=== PATIENT | male | born 1985 | race Two or more races ===

== ENCOUNTER 2024-08-29 23:47 | Inpatient (IN) | payer MEDICAID, OTHER ==
[~2024-08-29] VITALS: Ht 172.7 cm; Wt 107.6 kg
[2024-08-30 00:14] LABS: EOSINOPHILS % (AUTO) 2.9 % (1.0-6.0); HEMATOCRIT 46.2 % (41-53); HEMOGLOBIN 16.1 g/dL (13.5-17.5); LYMPHOCYTES # (AUTO) 2.1 K/uL (1.0-4.8); LYMPHOCYTES % (AUTO) 29.6 % (22.0-44.0); MEAN CORPUSCULAR HEMOGLOBIN 30.8 pg (26.0-34.0); MEAN CORPUSCULAR HGB CONC 34.8 G/dL (31.0-37.0); MEAN CORPUSCULAR VOLUME 89 fL (80-100); MONOCYTES # (AUTO) 0.5 K/uL (0.1-1.0); MONOCYTES % (AUTO) 6.8 % (2.0-9.0); NEUTROPHILS # (AUTO) 4.3 K/uL (1.8-7.7); NEUTROPHILS % (AUTO) 59.7 % (40.0-70.0); PLATELET COUNT (AUTO) 271 K/uL (150-450); RED BLOOD CELL COUNT(AUTO) 5.21 MIL/uL (4.50-5.90); RED CELL DISTRIBUTION WIDTH 14.3 % (11.5-14.5); WHITE BLOOD COUNT (AUTO) 7.1 K/uL (4.5-11.0)
[2024-08-30 00:23] LABS: ANION GAP 13 mmol/L (8-16); CALCIUM, TOTAL 8.4 mg/dL (8.8-10.5); CARBON DIOXIDE 24 mmol/L (22-29); CHLORIDE 101 mmol/L (98-107); CREATININE 1.08 mg/dL (0.60-1.30); GLOMERULAR FILTR. RATE CALC > 60 mL/min (>60); GLUCOSE,RANDOM 96 mg/dL (70-110); POTASSIUM 4.1 mmol/L (3.5-5.1); SODIUM SERUM 138 mmol/L (136-145); UREA NITROGEN, BLOOD 10 mg/dL (7-18)
[2024-08-30 00:32] LABS: ALCOHOL, BLOOD (SERUM) 232 mg/dL (0-10)
[2024-08-30 03:19] LABS: COVID AG,FIA SOURCE NASAL SWAB
[2024-08-30 03:24] LABS: APPEARANCE,URINE HAZY (CLEAR); BILIRUBIN,URINE NEGATIVE (NEGATIVE); COLOR,URINE YELLOW (YELLOW); GLUCOSE, URINE (UA) NEGATIVE (NEGATIVE); KETONES,URINE NEGATIVE (NEGATIVE); LEUKOCYTE ESTERASE ,URINE NEGATIVE (NEGATIVE); NITRATE,URINE NEGATIVE (NEGATIVE); OCCULT BLOOD,URINE NEGATIVE (NEGATIVE); PROTEIN,URINE 30-70 mg/dL (NEGATIVE); SPECIFIC GRAVITIY, URINE 1.022 (1.003-1.030); UROBILINOGEN,URINE <=1.0 mg/dL (<=1.0)
[2024-08-30 03:24] LABS: SARS-COV2 (COVID) ANTIGEN,FIA Negative (Negative)
[2024-08-30 03:29] LABS: ALCOHOL, URINE DRUG SCREEN POSITIVE (NEGATIVE); AMPHET/METH SCREEN,URINE NEGATIVE (NEGATIVE); BARBITURATE SCREEN, URINE NEGATIVE (NEGATIVE); BENZODIAZEPINES SCREEN,URINE NEGATIVE (NEGATIVE); CANNABINOID SCREEN,URINE NEGATIVE (NEGATIVE); COCAINE SCREEN,URINE NEGATIVE (NEGATIVE); METHADONE SCREEN, URINE NEGATIVE (NEGATIVE); OPIATE SCREEN,URINE NEGATIVE (NEGATIVE); PHENCYCLIDINE SCREEN,URINE NEGATIVE (NEGATIVE)
[2024-08-30 11:30] VITALS: O2SAT 96
[2024-08-30 13:43] VITALS: BP 133/83; PULSE 106; RESP 16; TEMP 96.8; O2SAT 95
[2024-08-30 20:02] VITALS: BP 130/79; PULSE 98; RESP 17; TEMP 97.5
[2024-08-30] MEDS ORDERED: IBUPROFEN 600 MG TABLET PO PRN (22:00)
[2024-08-30] MEDS ORDERED: CloNIDine HCL 0.1 MG TABLET PO PRN (22:00)
[2024-08-30] MEDS ORDERED: BACITRACIN 28 GM OINTMENT TP PRN (22:00)
[2024-08-30] MEDS ORDERED: MAGNESIUM HYDROXIDE SUSPENSION 30 ML UDCUP PO PRN (22:00)
[2024-08-30] MEDS ORDERED: LOPERAMIDE HCL 2 MG CAPSULE PO PRN (22:00)
[2024-08-30] MEDS ORDERED: ONDANSETRON 4 MG TABLET PO PRN (22:00)
[2024-08-30] MEDS ORDERED: BENZOCAINE/MENTHOL LOZENGE PO PRN (22:00)
[2024-08-30] MEDS ORDERED: MAG HYDROX/ALUMINUM HYD/SIMETH ES 30 ML SUSPENSION UDCUP PO PRN (22:00)
[2024-08-30] MEDS ORDERED: PETROLATUM,WHITE 28 GM JELLY TP PRN (22:00)
[2024-08-30] MEDS ORDERED: OMEPRAZOLE 20 MG CAPSULE PO PRN (22:00)
[2024-08-30] MEDS ORDERED: DOCUSATE SODIUM 100 MG CAPSULE PO PRN (22:00)
[2024-08-30] MEDS ORDERED: ALBUTEROL SULFATE HFA 90 MCG/PUFF 8 GM INHALER IH PRN (22:00)
[2024-08-31 08:23] VITALS: BP 135/98; PULSE 98; RESP 18; TEMP 97.7; O2SAT 96
[2024-08-31 09:51] LABS: HEMOGLOBIN A1C 5.4 % (3.8-5.6)
[2024-08-31 10:04] LABS: ANION GAP 12 mmol/L (8-16); CALCIUM, TOTAL 8.9 mg/dL (8.8-10.5); CARBON DIOXIDE 24 mmol/L (22-29); CHLORIDE 101 mmol/L (98-107); CHOL/HDL RATIO 3.6 (4.2-7.3); CHOLESTEROL 208 mg/dL (131-200); CREATININE 0.85 mg/dL (0.60-1.30); GLOMERULAR FILTR. RATE CALC > 60 mL/min (>60); GLUCOSE,RANDOM 138 mg/dL (70-110); HDL CHOLESTEROL 57 mg/dL (40-60); LDL CHOL (CALC.) 111 mg/dL (0-130); POTASSIUM 3.4 mmol/L (3.5-5.1); SODIUM SERUM 137 mmol/L (136-145); TRIGLYCERIDES 200 mg/dL (15-150); UREA NITROGEN, BLOOD 17 mg/dL (7-18)
[2024-08-31 13:34] VITALS: BP 149/93
[2024-08-31] MEDS: LORazepam 2 MG TABLET PO PRN (13:35)
[2024-08-31] MEDS: HALOPERIDOL 5 MG TABLET PO PRN (13:35)
[2024-08-31 20:12] VITALS: BP 118/82; PULSE 99; RESP 18; TEMP 97.3; O2SAT 96
[2024-08-31] MEDS: ZOLPIDEM TARTRATE 10 MG TABLET PO PRN (21:10)
[2024-09-01 02:06] LABS: HEPATITIS C AB (EIA) Non Reactive (Non Reactive)
[2024-09-01 08:25] VITALS: BP 126/87; PULSE 84; RESP 17; TEMP 98; O2SAT 95
[2024-09-01] MEDS ORDERED: HydrOXYzine HCL 25 MG TABLET PO PRN (13:30)
[2024-09-01] MEDS ORDERED: GABAPENTIN 300 MG CAPSULE PO PRN (13:30)
[2024-09-01] MEDS: SERTRALINE HCL 100 MG TABLET PO ONE (13:47)
[2024-09-01] MEDS: GABAPENTIN 400 MG CAPSULE PO SCH (17:24)
[2024-09-01] MEDS: HydrOXYzine HCL 25 MG TABLET PO SCH (17:24)
[2024-09-02 08:19] VITALS: BP 111/77; PULSE 99; RESP 17; TEMP 98.6; O2SAT 96
[2024-09-02] MEDS: SERTRALINE HCL 100 MG TABLET PO SCH (09:22)
[2024-09-02 20:44] VITALS: BP 118/78; PULSE 94; RESP 18; TEMP 97.8; O2SAT 97
[2024-09-03] MEDS: ACETAMINOPHEN 325 MG TABLET PO PRN (06:33)
[2024-09-03 06:36] VITALS: RESP 16
[2024-09-03 07:30] VITALS: RESP 18; O2SAT 95
[2024-09-03 08:02] VITALS: BP 126/75; PULSE 95; RESP 18; TEMP 97; O2SAT 95
[2024-09-03] MEDS: INFLUENZA VIRUS VACCINE TVS (6MO+) 2024-25/PF 45 MCG/0.5 ML SYRINGE IM. ONE (14:01)
[2024-09-03 20:03] VITALS: BP 115/74; PULSE 97; RESP 17; TEMP 98.1; O2SAT 95
[2024-09-04 08:35] VITALS: BP 114/71; PULSE 62; RESP 17; TEMP 97.7; O2SAT 96
[2024-09-04 20:35] VITALS: BP 143/94; PULSE 97; RESP 18; TEMP 97; O2SAT 95
[2024-09-05 08:16] VITALS: BP 104/64; PULSE 71; RESP 18; TEMP 98.2; O2SAT 95
[2024-09-05] MEDS ORDERED: GABA-1201 PO (15:06)
[2024-09-05] MEDS ORDERED: HYDR-4527 PO (15:07)
[2024-09-05] MEDS ORDERED: SERT-162 PO (15:07)
== END 2024-09-05 15:20 | disposition home or self-care (01) | DRG 754 ==
LOC: EMS 23:51 → B2S 08-30 11:19
PROVIDERS: ADMIT Psychiatry & Neurology Psychiatry; ATTEND Psychiatry & Neurology Psychiatry
PROC: GZ56ZZZ Individual Psychotherapy, Supportive (ICD-10-PCS; principal; 2024-08-30)
DX: F32.9 Major depressive disorder, single episode, unspecified (principal); R45.851 Suicidal ideations; E66.9 Obesity, unspecified; F10.129 Alcohol abuse with intoxication, unspecified; Z20.822 Contact with and (suspected) exposure to COVID-19; F41.9 Anxiety disorder, unspecified; K21.9 Gastro-esophageal reflux disease without esophagitis; G47.00 Insomnia, unspecified; K59.00 Constipation, unspecified; Z68.36 Body mass index [BMI] 36.0-36.9, adult; Y90.7 Blood alcohol level of 200-239 mg/100 ml
CPT/HCPCS: 80048; 80061; 80307; 81003; 83036; 84132; 85025; 86803; 87340; 90686; G0480

== ENCOUNTER 2024-09-18 02:00 | Inpatient (IN) | payer MEDICAID, OTHER ==
[~2024-09-18] VITALS: Ht 172.7 cm; Wt 110.0 kg
[~2024-09-18 02:00] MED LIST: GABA-1201 PO; HYDR-4527 PO; SERT-162 PO
[2024-09-18 03:45] LABS: PH,URINE DRUG SCREEN 5.5 (5.0-8.0)
[2024-09-18 03:48] LABS: BASOPHILS % (AUTO) 0.5 % (0.0-2.0); EOSINOPHILS % (AUTO) 3.6 % (1.0-6.0); HEMOGLOBIN 14.4 g/dL (13.5-17.5); LYMPHOCYTES # (AUTO) 2.1 K/uL (1.0-4.8); MEAN CORPUSCULAR HEMOGLOBIN 29.8 pg (26.0-34.0); MEAN CORPUSCULAR HGB CONC 33.6 G/dL (31.0-37.0); MEAN CORPUSCULAR VOLUME 89 fL (80-100); MONOCYTES # (AUTO) 0.3 K/uL (0.1-1.0); MONOCYTES % (AUTO) 4.6 % (2.0-9.0); NEUTROPHILS # (AUTO) 4.2 K/uL (1.8-7.7); NEUTROPHILS % (AUTO) 60.3 % (40.0-70.0); PLATELET COUNT (AUTO) 315 K/uL (150-450); RED BLOOD CELL COUNT(AUTO) 4.85 MIL/uL (4.50-5.90); RED CELL DISTRIBUTION WIDTH 13.9 % (11.5-14.5); WHITE BLOOD COUNT (AUTO) 6.9 K/uL (4.5-11.0)
[2024-09-18 03:53] LABS: ALCOHOL, URINE DRUG SCREEN POSITIVE (NEGATIVE); AMPHET/METH SCREEN,URINE NEGATIVE (NEGATIVE); BARBITURATE SCREEN, URINE NEGATIVE (NEGATIVE); BENZODIAZEPINES SCREEN,URINE NEGATIVE (NEGATIVE); CANNABINOID SCREEN,URINE POSITIVE (NEGATIVE); COCAINE SCREEN,URINE NEGATIVE (NEGATIVE); METHADONE SCREEN, URINE NEGATIVE (NEGATIVE); OPIATE SCREEN,URINE NEGATIVE (NEGATIVE); PHENCYCLIDINE SCREEN,URINE NEGATIVE (NEGATIVE)
[2024-09-18 04:05] LABS: ANION GAP 12 mmol/L (8-16); CARBON DIOXIDE 26 mmol/L (22-29); CHLORIDE 103 mmol/L (98-107); CREATININE 0.83 mg/dL (0.60-1.30); GLOMERULAR FILTR. RATE CALC > 60 mL/min (>60); GLUCOSE,RANDOM 97 mg/dL (70-110); POTASSIUM 3.6 mmol/L (3.5-5.1); SODIUM SERUM 141 mmol/L (136-145); UREA NITROGEN, BLOOD 11 mg/dL (7-18)
[2024-09-18 04:06] LABS: ALCOHOL, BLOOD (SERUM) 207 mg/dL (0-10)
[2024-09-18 04:32] LABS: COVID AG,FIA SOURCE NASAL SWAB
[2024-09-18 04:51] LABS: SARS-COV2 (COVID) ANTIGEN,FIA Negative (Negative)
[2024-09-18] MEDS ORDERED: HALOPERIDOL 5 MG TABLET PO PRN (12:30)
[2024-09-18] MEDS ORDERED: ZOLPIDEM TARTRATE 10 MG TABLET PO PRN (12:30)
[2024-09-18 15:56] VITALS: BP 152/92; PULSE 94; RESP 18; TEMP 97.8; O2SAT 98
[2024-09-18] MEDS: LITHIUM CARBONATE 300 MG CAPSULE PO SCH (19:04)
[2024-09-18 21:24] VITALS: BP 140/90; PULSE 92; RESP 18; TEMP 97.2; O2SAT 99
[2024-09-19] MEDS ORDERED: MAG HYDROX/ALUMINUM HYD/SIMETH ES 30 ML SUSPENSION UDCUP PO PRN (09:15)
[2024-09-19] MEDS ORDERED: PETROLATUM,WHITE 28 GM JELLY TP PRN (09:15)
[2024-09-19] MEDS ORDERED: ALBUTEROL SULFATE HFA 90 MCG/PUFF 8 GM INHALER IH PRN (09:15)
[2024-09-19] MEDS ORDERED: MAGNESIUM HYDROXIDE SUSPENSION 30 ML UDCUP PO PRN (09:15)
[2024-09-19] MEDS ORDERED: DOCUSATE SODIUM 100 MG CAPSULE PO PRN (09:15)
[2024-09-19] MEDS ORDERED: ONDANSETRON 4 MG TABLET PO PRN (09:15)
[2024-09-19] MEDS ORDERED: OMEPRAZOLE 20 MG CAPSULE PO PRN (09:15)
[2024-09-19] MEDS ORDERED: CloNIDine HCL 0.1 MG TABLET PO PRN (09:15)
[2024-09-19] MEDS ORDERED: LOPERAMIDE HCL 2 MG CAPSULE PO PRN (09:15)
[2024-09-19] MEDS ORDERED: BENZOCAINE/MENTHOL LOZENGE PO PRN (09:15)
[2024-09-19] MEDS ORDERED: BACITRACIN 28 GM OINTMENT TP PRN (09:15)
[2024-09-19 09:50] VITALS: BP 124/85; PULSE 67; RESP 18; TEMP 97.2; O2SAT 95
[2024-09-19 21:04] VITALS: BP 126/84; PULSE 82; RESP 18; TEMP 97.4; O2SAT 97
[2024-09-20] MEDS: OMEGA-3/DHA/EPA/FISH OIL 1,000 MG CAPSULE PO SCH (08:19)
[2024-09-20 09:59] VITALS: BP 123/94; PULSE 83; RESP 18; TEMP 97.5; O2SAT 98
[2024-09-20 13:38] VITALS: BP 123/94; PULSE 83; RESP 18; TEMP 97.5; O2SAT 98
[2024-09-20] MEDS: IBUPROFEN 600 MG TABLET PO PRN (13:38)
[2024-09-20 14:38] VITALS: RESP 17
[2024-09-20 17:04] VITALS: BP 131/86; PULSE 91; RESP 18; TEMP 97.8; O2SAT 98
[2024-09-20] MEDS: ACETAMINOPHEN 325 MG TABLET PO PRN (17:04)
[2024-09-20 20:30] VITALS: BP 128/89; PULSE 18; RESP 19; TEMP 97.6; O2SAT 97
[2024-09-20] MEDS: LORazepam 2 MG TABLET PO PRN (21:43)
[2024-09-21 09:09] VITALS: BP 129/83; PULSE 102; RESP 18; TEMP 97.6; O2SAT 99
[2024-09-21 15:16] VITALS: BP 131/79; PULSE 98; RESP 17; TEMP 98
[2024-09-21] MEDS: BusPIRone HCL 5 MG TABLET PO SCH (15:16)
[2024-09-21 16:16] VITALS: BP 136/76; PULSE 73; RESP 17; TEMP 97.9; O2SAT 99
[2024-09-21 20:00] VITALS: BP 135/80; PULSE 18; RESP 18; TEMP 98.4; O2SAT 98
[2024-09-22 08:57] VITALS: BP 125/78; PULSE 17; PULSE 77; RESP 17; TEMP 97.1; O2SAT 98
[2024-09-22 20:00] VITALS: BP 129/81; PULSE 18; RESP 18; TEMP 98.4; O2SAT 98
[2024-09-23 09:38] VITALS: BP 122/79; PULSE 87; RESP 18; TEMP 97.9; O2SAT 96
[2024-09-23 21:30] VITALS: BP 130/82; PULSE 84; RESP 19; TEMP 97.3; O2SAT 97
[2024-09-24 10:12] VITALS: BP 131/89; PULSE 79; RESP 18; TEMP 98; O2SAT 96
[2024-09-24 20:26] VITALS: BP 119/78; PULSE 86; RESP 18; TEMP 97.8; O2SAT 98
[2024-09-25 08:45] VITALS: BP 131/82; PULSE 86; RESP 18; TEMP 98.4; O2SAT 98
[2024-09-25 20:41] VITALS: BP 124/86; PULSE 90; RESP 18; TEMP 97.8; O2SAT 98
[2024-09-26 10:19] VITALS: BP 136/100; PULSE 85; RESP 18; TEMP 97.4; O2SAT 98
[2024-09-26 20:50] VITALS: BP 116/69; PULSE 71; RESP 20; TEMP 97.7; O2SAT 97
[2024-09-27 14:06] VITALS: BP 139/93; PULSE 85; RESP 18; TEMP 97.8; O2SAT 96
[2024-09-27] MEDS ORDERED: LITH300C3 PO (14:32)
[2024-09-27] MEDS ORDERED: BUSP5TAB20 PO (14:32)
== END 2024-09-27 17:00 | DRG 753 ==
LOC: EMS 02:00 → EDBEDREQ 06:33 → EMS 15:02 → 3EI 15:34
PROVIDERS: ADMIT Psychiatry & Neurology Psychiatry; ATTEND Psychiatry & Neurology Psychiatry
DX: F31.9 Bipolar disorder, unspecified (principal); R45.851 Suicidal ideations; E66.9 Obesity, unspecified; F41.9 Anxiety disorder, unspecified; G47.00 Insomnia, unspecified; Z20.822 Contact with and (suspected) exposure to COVID-19; K59.00 Constipation, unspecified; F10.129 Alcohol abuse with intoxication, unspecified; F12.90 Cannabis use, unspecified, uncomplicated; K21.9 Gastro-esophageal reflux disease without esophagitis; Z68.36 Body mass index [BMI] 36.0-36.9, adult
CPT/HCPCS: 80048; 80178; 80307; 85025; 99285; G0480